=== PATIENT | male | born 1945 | race Caucasian/White ===

== ENCOUNTER → 2017-04-13 | Outpatient (CLI) | payer BC, OTHER ==
[~2017-04-13] MED LIST: CHOL1CAP67 PO; CLOBETASOL; FLUOCINOLONE; IBUP1CAP9; KETO2SHA; NYSTCRE11; SILD50TA PO
--- NOTE | 2017-04-13 13:36 | DIAGNOSTIC IMAGING REPORT ---
CHEST 2 VIEWS ROUTINE HISTORY: Weight loss. COMPARISON: Chest 06/01/2012. FINDINGS: The lungs are clear. Cardiac silhouette is normal in size. No pleural effusions. No pneumothorax. Faint nodular density within the base of the left lung base is consistent with a nipple shadow. IMPRESSION: No acute process. Electronically signed by: Frank Naylor M.D. 04/13/2017 1:35 PM Dictated Date/Time: 04/13/2017 1:29 PM
== END ==
LOC: C.RAD1850 12:58
PROVIDERS: ATTEND Family Medicine
DX: R05 Cough (principal); R53.83 Other fatigue; R63.0 Anorexia; R43.2 Parageusia; R63.4 Abnormal weight loss; R43.9 Unspecified disturbances of smell and taste

== ENCOUNTER → 2017-10-27 | Outpatient (CLI) | payer BC, OTHER ==
[~2017-10-27] MED LIST changes: -IBUP1CAP9; +IBUP200C80
--- NOTE | 2017-10-27 11:17 | DIAGNOSTIC IMAGING REPORT ---
R KNEE 2 VIEWS ROUTINE CLINICAL HISTORY: RIGHT MEDIAL KNEE PAIN COMPARISON: None. DISCUSSION: No acute fractures are visualized. There are osteoarthritic changes most pronounced within the medial joint compartment and patellofemoral joint. There is an equivocal osteochondral defect involving the patella. No destructive lesions are visualized. IMPRESSION: 1. No acute fractures 2. Moderate osteoarthritic changes most pronounced within the medial joint compartment and patellofemoral joint. Electronically signed by: Yasir Rivera M.D. 10/27/2017 11:16 AM Dictated Date/Time: 10/27/2017 11:15 AM
--- NOTE | 2017-10-27 11:21 | DIAGNOSTIC IMAGING REPORT ---
R SHOULDER MIN 2 VIEWS ROUTINE CLINICAL HISTORY: Right shoulder pain COMPARISON: None. DISCUSSION: No acute fractures or dislocations are visualized. Degenerative changes are present within the AC joint. There is a calcification located inferior to the scapular glenoid. This may relate to an old labral injury. IMPRESSION: 1. No acute fractures 2. No destructive lesions 3. Degenerative changes within the AC joint 4. Small calcific density located the undersurface of the scapular glenoid. This could relate to an old labral injury. Electronically signed by: Yasir Rivera M.D. 10/27/2017 11:20 AM Dictated Date/Time: 10/27/2017 11:19 AM
== END | disposition home or self-care (01) ==
LOC: C.RAD1850 11:00
PROVIDERS: ATTEND Family Medicine
DX: M25.561 Pain in right knee (principal); M25.511 Pain in right shoulder

== ENCOUNTER 2024-12-22 05:20 | Inpatient (IN) ==
--- NOTE | 2024-11-23 11:46 | PAT Medication Instructions ---
Medication Instructions Date of Service November 23, 2024 Home Medications aspirin 81 mg tablet 81 mg PO QAM cholecalciferol (vitamin D3) 50 mcg (2,000 unit) capsule 50 mcg PO DAILY rosuvastatin 5 mg tablet 5 mg PO HS thiamine HCl (vitamin B1) 100 mg tablet 100 mg PO QAM acetaminophen 650 mg tablet,extended release (Tylenol Arthritis Pain) 650 mg PO Q12H PRN Pain cetirizine 10 mg tablet 10 mg PO DAILY PRN Congestion ibuprofen 200 mg tablet 200 mg PO Q6H PRN Pain multivitamin 1 tab PO DAILY benzonatate 200 mg capsule 200 mg PO HS PRN Cough cyanocobalamin (vitamin B-12) 500 mcg tablet (Vitamin B-12) 500 mcg PO Q2D ASK your surgeon for instructions ibuprofen 200 mg tablet 200 mg PO Q6H PRN Pain ASK your prescriber and surgeon aspirin 81 mg tablet 81 mg PO QAM DO NOT take the morning of surgery cholecalciferol (vitamin D3) 50 mcg (2,000 unit) capsule 50 mcg PO DAILY thiamine HCl (vitamin B1) 100 mg tablet 100 mg PO QAM cetirizine 10 mg tablet 10 mg PO DAILY PRN Congestion multivitamin 1 tab PO DAILY cyanocobalamin (vitamin B-12) 500 mcg tablet (Vitamin B-12) 500 mcg PO Q2D Take morning of surgery With a small sip of water, OTHERWISE NOTHING TO EAT OR DRINK AFTER MIDNIGHT: acetaminophen 650 mg tablet,extended release (Tylenol Arthritis Pain) 650 mg PO Q12H PRN Pain (if needed) Take evening before surgery rosuvastatin 5 mg tablet 5 mg PO HS acetaminophen 650 mg tablet,extended release (Tylenol Arthritis Pain) 650 mg PO Q12H PRN Pain (if needed) cetirizine 10 mg tablet 10 mg PO DAILY PRN Congestion (if needed) benzonatate 200 mg capsule 200 mg PO HS PRN Cough (if needed) Other Notes If you have any questions please call us at [phone] or [phone] or [phone] or [phone]
--- NOTE | 2024-11-25 09:53 | Anesthesiology Consultation ---
Date of Service November 25, 2024 Assessment & Plan (1) Encounter for pre-operative examination: - awaiting surgeon ordered medical clearance, 11/[address] [facility] [address] Swenson. Chart Review Chart Review: Pending: Refer to Additional Notes / Consult section and Patient seen in Pre Admission Testing Teaching & Discussion Pre-Anesthesia Teaching/Discussion Notes: Instructed NPO after midnight before surgery, except medications with 15 cc of water. Medication instructions provided according to the PAT guidelines. History Surgery Operation Date: 12/22/24 10:40 Proposed Procedures p Left Total Hip Arthroplasty - Akil Townsend MD Height/Weight Height: 5 ft 10 in Weight: 88.2 kg Allergies Allergy/AdvReac Type Severity Reaction Status Date / Time naproxen Allergy Unknown Hives Verified 11/23/24 10:50 amoxicillin Allergy Hives Verified 11/23/24 10:50 digoxin [From Lanoxin] Allergy Hives Verified 11/23/24 10:50 sulfamethoxazole Allergy Hives Verified 11/23/24 10:50 [From Bactrim] terbinafine [From Lamisil] Allergy Hives Verified 11/23/24 10:50 trimethoprim [From Bactrim] Allergy Hives Verified 11/23/24 10:50 Medications Home Medications Medication Instructions Recorded Confirmed Last Taken aspirin 81 mg tablet 81 mg PO QAM 09/20/24 11/23/24 Unknown cholecalciferol (vitamin D3) 50 50 mcg PO DAILY 09/20/24 11/23/24 Unknown mcg (2,000 unit) capsule rosuvastatin 5 mg tablet 5 mg PO HS 09/20/24 11/23/24 Unknown thiamine HCl (vitamin B1) 100 mg 100 mg PO QAM 09/20/24 11/23/24 Unknown tablet acetaminophen 650 mg 650 mg PO Q12H PRN Pain 09/21/24 11/23/24 Unknown tablet,extended release (Tylenol Arthritis Pain) cetirizine 10 mg tablet 10 mg PO DAILY PRN Congestion 09/21/24 11/23/24 Unknown ibuprofen 200 mg tablet 200 mg PO Q6H PRN Pain 09/21/24 11/23/24 Unknown multivitamin 1 tab PO DAILY 09/21/24 11/23/24 Unknown benzonatate 200 mg capsule 200 mg PO HS PRN Cough 10/14/24 11/23/24 Unknown cyanocobalamin (vitamin B-12) 500 500 mcg PO Q2D 11/23/24 11/23/24 Unknown mcg tablet (Vitamin B-12) Past Medical History Medical History (Updated 11/25/24 @ 10:13 by Essie Hopson PA-C) Arthritis History of anemia chronic History of COVID-19 (~2021) denies hospitalization-symptoms resolved Hyperlipidemia Sleep apnea no device Patient denies h/o stroke, seizures, heart attack, heart failure, DM, HTN, blood clots/DVTs or blood transfusions. Exercise / Class Metabolic Activity II 4-5 Yardwork/Stairs/Walk up hill (denies chest discomfort or shortness of breath with one flight of stairs) Past Family History Family History Other Cancer Diabetes Heart disease Past Surgical History Surgical History H/O colonoscopy (2023) History of cataract surgery bilat History of removal of cyst (10/21/24) Excision Sebaceous Cyst Scalp 2cm in Size - Timothy Parikh MD, FACS History of tooth extraction Hx of elbow surgery right Past Anesthesia History No Hx of Anesthesia Complications and No Family Hx of Anesthesia Complications History of PONV No Hx of PONV and No Hx of Motion Sickness Social History Smoking Status: Former smoker Do You Dip or Chew Tobacco: No Smoking End Date: only a little, years ago Hx Alcohol Use: Yes Alcohol type: wine alcohol intake frequency: other Alcohol Intake Frequency Comment: 1-2 glasses/week Hx Substance Use: No substance use type: does not use Review of Systems Patient denies chest pain, shortness of breath, dyspnea on exertion, reflux, fever, chills, cough, wheezing, or palpitations. Physical Exam Vital Signs Vitals BP 110/68 P 65 TEMP 98.2 SP02 96% on RA RESP 18 Physical Patient resting comfortably in chair in no acute distress, alert and oriented, responding appropriately throughout visit Full cervical extension range of motion without pain TMD 3.5 finger breadths Mallampati Score 2 Dentition: one cap and permanent upper bridge, denies chipped or loose teeth, crowns, or implants Lungs: normal respiratory effort. Good air movement, clear throughout to auscultation, no adventitious breath sounds Cardiac: regular rate and rhythm, no murmurs noted Carotid arteries: negative bruit bilat Lab Results Anesthesia Preop Results Results Anesthesia Widget: WBC 5.77 K/ul (4.8-10.8) 11/07/24 Hgb 13.3 g/dl (14.0-18.0) L 11/07/24 Hct 37.8 % (42.0-52.0) L 11/07/24 Plt 206 K/uL (130-400) 11/07/24 Na 139 mmol/L (136-145) 11/07/24 K 4.4 mmol/L (3.5-5.1) 11/07/24 Cl 103 mmol/L (98-107) 11/07/24 CO2 32 mmol/L (21-32) 11/07/24 BUN 23 mg/dl (6-23) 11/07/24 Creat 1.07 mg/dl (0.6-1.4) 11/07/24 Glucose Level 93 mg/dl (70-99(Fasting)) 11/07/24 PT 10.7 Seconds (9.0-12.0) 11/25/24 PTT 26 Seconds (21-31) 11/25/24 INR 1.0 (0.9-1.1) 11/25/24 Urine Color Dark Yellow 11/25/24 Urine Appearance Clear (Clear) 11/25/24 Urine pH 5.5 (4.5-7.5) 11/25/24 Urine Specific [place] 1.026 (1.000-1.030) 11/25/24 Urine Protein Negative (Negative) 11/25/24 Urine Glucose (UA) Negative (Negative) 11/25/24 Urine Ketones Trace (Negative) H 11/25/24 Urine Blood Negative (Negative) 11/25/24 Urine Nitrite Negative (Negative) 11/25/24 Urine Bilirubin Negative (Negative) 11/25/24 Urine Urobilinogen Negative (Negative) 11/25/24 Urine Leukocyte Esterase Negative (Negative) 11/25/24 Blood Type A Negative 11/25/24 Antibody Screen NEGATIVE 11/25/24 Testing Electrocardiogram Date: 09/27/24 NSR, rate 70 bpm Incomplete RBBB Chest X-Ray Date: 03/09/24 No acute chest disease.
--- NOTE | 2024-12-02 12:08 | History & Physical Report ---
Date of Service December 02, 2024 Assessment & Plan (1) Osteoarthritis of left hip: Plan: PRE-OP Diagnosis: Left hip osteoarthritis Planned Procedure: Left total hip arthroplasty Plan: Patient is scheduled to undergo this procedure at the [facility] with Dr. Townsend on , December 22, 2024. Risks and complications of the procedure such as: Infection, bleeding, pain, scarring, nerve blood vessel damage, weakness, wound problems, stiffness, incomplete relief of symptoms, hardware failure, hardware loosening, wear, fracture, tendon or ligament injury, dislocation, leg length inequality, blood clots, embolism, heart attack, stroke and were explained to the patient at his visit today. Informed consent to perform the procedure was obtained. Patient was seen by PAT on November 25 and while there he obtained a CBC with differential, complete metabolic panel, PT/INR, blood type and screen, urinalysis, urine culture and sensitivity, EKG, and a nasal culture for MRSA. Patient will also need preoperative medical clearance from their primary care provider. 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 Mullen. Patient states that he plans on doing in-home physical therapy for the first 1 to 2 weeks postoperatively with [facility]. Patient states that he will most likely elect to do outpatient physical therapy at [facility] in [place]. Patient will need a walker, raised toilet seat, shower chair and a hip kit. During today's visit we reviewed the total hip packet as well as precautions. We discussed discharge planning from the hospital. I provided paperwork to obtain a handicap placard for their vehicle. We discussed lectures offered by [facility] in regards to joint replacement surgery via Zoom. I advised the patient that upon discharge from hospital we will prescribe a narcotic pain medication and anti- inflammatory. Patient will also be on an 81 mg aspirin twice daily for blood clot prevention. Patient will be scheduled for 2-week postoperative follow-up visit with myself on January 04. This chart was completed utilizing [employer] voice recognition software. Grammatical errors, random word insertions, pronoun errors, and in complete sentences are an occasional consequence of the system. Any questions or concerns about the content, text, or information contained within the body of this dictation should be addressed directly to the physician for clarification. History of Present Illness Chief Complaint: Chief Complaint: Left hip pain Primary Care Provider: Rigoberto Swenson DO History of Present Illness (including history relevant to procedure): This 79-year-old male presents to the clinic today for his preoperative history and physical. Patient complains of a 1-1/2 to 2-year history of significant left hip pain. He states that he has had multiple corticosteroid injections with only minimal relief of his pain. He states that he regularly uses ibuprofen and Tylenol. He localizes most of the pain over the posterior lateral aspect of his hip and feels that is affecting his mobility. He feels that the movement in his left lower extremity is very limited compared to that of the right. Due to failed conservative management patient is electing to proceed with surgical intervention. Review Of Systems: 12 point review of systems is performed and is unremarkable except for those things stated in the HPI and past medical history. 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 History of adenomatous polyp of colon Medicare annual wellness visit, subsequent Family history of aortic aneurysm Weight disorder Dry eye syndrome of left lacrimal gland ANEMIA TINEA NEDA MIXED HYPERLIPIDEMIA VITAMIN D DEFICIENCY TINNITUS Need for prophylactic vaccination and inoculation against influenza OBESITY, UNSPECIFIED Prostatism Tear of medial meniscus of knee ED (erectile dysfunction) Hand dermatitis Retinal tear Seborrheic keratosis Seborrheic dermatitis Low back pain Family history of abdominal aortic aneurysm Disorder of pigmentation, unspecified Benign neoplasm of other specified sites Pain in unspecified knee Follicular cyst of the skin and subcutaneous tissue, unspecified Unspecified cataract PERSONAL HISTORY OF COLONIC POLYPS Procedure History Procedure Procedure Date Comments Colonoscopy 07/16/2023 - Repeat colonoscopy in 5 years for history of polyps. - Sigmoid colon polyp, polypectomy:Hyperplastic polyp with associated lymphoid aggregate. - - One 3 mm polyp in the sigmoid colon, removed with a cold biopsy forceps. Resected and retrieved. - Diverticulosis in the left colon. - Internal hemorrhoids. - The examination was otherwise normal on direct and retroflexion views. Pelvic soft tissue X-ray 08/29/2019 - Moderate rather significant degenerative change of hips bilaterally. Findings are moderately progressive from the prior study. Colonoscopy and excision of mucosa of colon 05/06/2018 - tubular adenoma Shoulder X-ray right 10/27/2017 - 1. no acute fractures2. no destructive lesions3. degenerative changes within the AC joint4. Small calcific density located the undersurface of the scapular glenoid. This could relate to an old labral injury X-ray of right knee 10/27/2017 - 1. no acute fractures2. moderate osteoarthritic changes most pronounced within the medial joint compartment and patellofemoral joint Chest x-ray 04/13/2017 - No acute process Colonoscopy 10/22/2012 - Non-bleeding internal hemorrhoids. Repeat in 5 years. colonoscopy and adenomectomies (2) 04/21/2007 - tubular adenomas right elbow ORIF 1959 - S/P bone chips Allergies and Sensitivities: Amoxil(rash) Lanoxin sulfa drugs(Hives) sulfa drugs(Rash) sulfa drugs(Itching) Naprosyn(Hives) Bactrim(hives) Bactrim(rash) Bactrim(itching) Lamisil(hives) Current Home Meds: (Last Updated 11/30 08:47) acetaminophen (Tylenol 8 HR Arthritis Pain 650 mg oral tablet, extended release) aspirin (aspirin 81 mg oral delayed release tablet) 81 mg PO q48h benzonatate (Tessalon 200 mg oral capsule) 200 mg PO tid cetirizine (cetirizine 10 mg oral tablet) 10 mg PO Daily PRN: as needed for allergy symptoms cholecalciferol (Vitamin D3 2000 intl units oral capsule) 2,000 Int_Unit PO Daily ibuprofen (ibuprofen 200 mg oral tablet) 600 mg PO q8h multivitamin One-A-Day rosuvastatin (rosuvastatin 5 mg oral tablet) 5 mg PO qhs sodium hyaluronate (Euflexxa 10 mg/mL intra-articular solution) 20 mg intra- articular q7days R KNEE DJD M17.11 thiamine (thiamine 100 mg oral tablet) 100 mg PO Daily Allergies Allergy/AdvReac Type Severity Reaction Status Date / Time naproxen Allergy Unknown Hives Verified 11/23/24 10:50 amoxicillin Allergy Hives Verified 11/23/24 10:50 digoxin [From Lanoxin] Allergy Hives Verified 11/23/24 10:50 sulfamethoxazole Allergy Hives Verified 11/23/24 10:50 [From Bactrim] terbinafine [From Lamisil] Allergy Hives Verified 11/23/24 10:50 trimethoprim [From Bactrim] Allergy Hives Verified 11/23/24 10:50 Home Medications Medication Instructions Recorded Confirmed Type aspirin 81 mg tablet 81 mg PO QAM 09/20/24 11/23/24 History cholecalciferol (vitamin D3) 50 50 mcg PO DAILY 09/20/24 11/23/24 History mcg (2,000 unit) capsule rosuvastatin 5 mg tablet 5 mg PO HS 09/20/24 11/23/24 History thiamine HCl (vitamin B1) 100 mg 100 mg PO QAM 09/20/24 11/23/24 History tablet acetaminophen 650 mg 650 mg PO Q12H PRN Pain 09/21/24 11/23/24 History tablet,extended release (Tylenol Arthritis Pain) cetirizine 10 mg tablet 10 mg PO DAILY PRN Congestion 09/21/24 11/23/24 History ibuprofen 200 mg tablet 200 mg PO Q6H PRN Pain 09/21/24 11/23/24 History multivitamin 1 tab PO DAILY 09/21/24 11/23/24 History benzonatate 200 mg capsule 200 mg PO HS PRN Cough 10/14/24 11/23/24 History cyanocobalamin (vitamin B-12) 500 500 mcg PO Q2D 11/23/24 11/23/24 History mcg tablet (Vitamin B-12) Past Med/Surg History Problem List (Updated 12/02/24 @ 12:08 by Haroon Ferreira PA-C) Osteoarthritis of left hip Sebaceous cyst Arthritis Hyperlipemia Sleep apnea Fatigue (Chronic) Anemia (Chronic) Medical History History of anemia chronic History of COVID-19 (~2021) denies hospitalization-symptoms resolved Hyperlipidemia Sleep apnea no device Arthritis Surgical History History of removal of cyst (10/21/24) Excision Sebaceous Cyst Scalp 2cm in Size - Timothy Parikh MD, FACS Hx of elbow surgery right History of tooth extraction History of cataract surgery bilat H/O colonoscopy (2024) Family History Other Cancer Diabetes Heart disease Social History Smoking Status: Former smoker Second Hand Exposure: No; Do You Dip or Chew Tobacco: No; Hx Alcohol Use: Yes Alcohol type: wine Alcohol Intake Frequency: 2-4 x/Month Hx Substance Use: No Preferred Language: [place] Communication Ability: Effective Certified Prosthetist Required: No Beliefs That Will Affect Care: None marital status: Current Living Situation: Spouse current occupational status: retired How many Children do You have: 2 Feels Safe at Home: Yes Diet: regular during the past year weight has: remained stable Assistive Devices: Glasses Review of Systems All systems reviewed & are unremarkable except as noted in Subjective Physical Exam Physical Exam: Initial Wt: 11/29 90.0 kg 198 lb Physical Exam: (relevant to the procedure, including heart and lung evaluation) General: Alert and oriented x 3 with proper grooming and hygiene Eyes: Pupils are equal and reactive to light with accommodation. Extraocular movements are intact. Throat: Posterior oropharynx is clear with absence of edema, erythema or exudate. Dentition is appropriate Cardiac: Regular rate and rhythm with no murmurs or gallops appreciated Lungs: Clear to auscultation throughout with no wheezing, rales or rhonchi Abdomen: Mildly obese, nondistended, nontender with normal active bowel sounds Extremities: Right hip; flexion is limited to 100 degrees, internal rotation to 5 degrees and external rotation to 30 degrees. He does have tenderness to palpation in the groin area as well as over the posterior lateral aspect of the hip. Obligatory abduction and external rotation with flexion. Diminished rotatory movements and some lateral and posterior hip pain with internal rotation Diminished movement of bilateral hips, with left > right. 5/5 Motor strength, - passive straight leg raising + tenderness over the greater trochanter of the left hip, Gait normal Neuro: Cranial nerves II through XII intact no motor or sensory deficit Skin: Normal appearance no open skin areas or discharge
[2024-12-22] MEDS: dexAMETHasone**PF** 10 MG/ML VIAL IV SCH (05:57)
[2024-12-22] MEDS: ACETAMINOPHEN 500 MG TAB PO SCH ×2 (05:57→14:09)
[2024-12-22] MEDS: LR 500ML BOLUS, THEN 15ML/HR IV SCH ×2 (05:57→09:44)
[2024-12-22] MEDS: FAMOTIDINE 20 MG TAB PO SCH (05:57)
[2024-12-22] MEDS: LR 60ML/HR IV SCH (05:58)
[2024-12-22] MEDS ORDERED: BUPIVACAINE 0.5 % 5 MG/1 ML PF 10ML VIAL ONE (06:34)
[2024-12-22] MEDS ORDERED: MIDAZOLAM HCL 1 MG/ML 2ML VIAL ONE (06:39)
[2024-12-22] MEDS ORDERED: LIDOCAINE 2% 2 ML VIAL/AMP(20MG/ML) INFIL ONE (06:40)
[2024-12-22] MEDS ORDERED: PROPOFOL IV EMULSION 10 MG/ML 20 ML VIAL IV ONE (06:40)
--- NOTE | 2024-12-22 06:41 | History & Physical Bridge Note ---
Date of Service December 22, 2024 History & Physical Bridge Note I have examined the patient, reviewed the History & Physical and in the interval since the performance of the History & Physical I have noted the following changes of clinical significance: no changes noted
[2024-12-22] MEDS: TRANEXAMIC ACID 1,000 MG **IV Pre-op IV SCH (06:57)
[2024-12-22] MEDS ORDERED: ONDANSETRON INJ 2 MG/ML 2 ML VIAL IV PRN ×2 (07:03→08:43)
[2024-12-22] MEDS ORDERED: ATROPINE SULFATE 0.1 MG/ML 10ML SYR IV PRN (07:03)
[2024-12-22] MEDS ORDERED: KETAMINE HCL 10MG/ML SYR ONE (07:30)
[2024-12-22] MEDS ORDERED: ePHEDrine sulfate 50 MG/5 ML SYR ONE (07:36)
[2024-12-22] MEDS: ROPIVACAINE 0.5% HCL/PF 246 MG, Ketorolac (*for OR use only*) 30 MG, EPINEPHrine 30MG/3... INFIL SCH (08:00)
--- NOTE | 2024-12-22 08:33 | Operative Report ---
Post Operative Report Pre & Post Diagnosis Operation Date: 12/22/24 07:00 Pre-Op Diagnosis: Left Hip Osteoarthritis Post-Op Diagnosis: Left Hip Osteoarthritis I identified the patient and participated in the time-out.: Yes Procedure Operation Date: 12/22/24 07:00 Actual Procedures p Left Total Hip Arthroplasty(Left) - Akil Townsend MD Surgeon Akil Townsend MD Reel Stripper XIAO Ferreira PA-C. No resident or fellow was available to assist. Estimated Blood Loss 100 Findings Consistent with Post-Op Diagnosis Specimens Left femoral head Anesthesia Type Spinal MAC Complications none Disposition Disposition: Recovery Room Indications 79-year-old male, left hip arthritis refractory to conservative management. X- rays demonstrate severe joint space narrowing and marginal osteophyte formation. I reviewed the risks and benefits of surgery, alternatives to surgery, and expected outcomes. He elected to proceed with surgery. All questions were answered. Informed consent was signed. Description of Procedure Patient was identified in the preoperative holding area where the surgical site, left hip, was marked. A spinal anesthetic was placed, then the patient was brought back to the main operating room, placed in the operating table and moved into the lateral decubitus position. Axillary roll was placed. All bony prominences were padded. Perioperative antibiotics and tranexamic acid 1 gram IV were administered. The operative extremity was prepped and draped in the normal sterile fashion. Prior to incision a multidisciplinary timeout was called. All in the room were in agreement. We began by making an incision for a posterior approach to the hip. We dissected down through subcutaneous tissues to the level of the fascia. The fascia was incised in line with the incision. Charnley bow was placed. Fatty tissue was reflected posteriorly off the back of the greater trochanter to expose the piriformis and short external rotators of the hip. Quadratus femor is was taken off the femur subperiosteally. The piriformis and short external rotators were dissected off the posterior aspect of the hip. A box cut was made in the capsule. Inferior hip capsule was released off the femur. The femoral head was dislocated. The femoral neck cut was made at our preoperative template. The acetabulum was then exposed. The labrum was sharply excised. Contents of the cotyloid fossa were removed with electrocautery. We then began reaming at a size 8 mm less than our preoperative template. We reamed up by 1 [address] the way up to a size 58 mm cup. This gave us good bleeding cancellus bone circumferentially. The acetabulum was then irrigated out and dried. The real [place] Gription cup was then impacted down into position with 40 degrees of lateral opening and 25 degrees of anteversion. A single cancellous bone screw was placed up into the ilium. Excellent fixation was obtained. A trial liner for a 36 mm femoral head was then placed. Next we turned our attention to the femur. The lateral neck was removed with a box osteotome. Intramedullary guide was used to establish the intramedullary canal. We then broached all the way up to a size 6. We began trialing with a high offset neck and a +1.5 head. Hip was reduced. Leg lengths were symmetric. The hip was stable in extension and external rotation, and stable in the sleeper position. At 90 degrees of hip flexion the hip could be internally rotated 70 degrees before levering out of the cup. I was very happy with the stability exam. Therefore the hip was dislocated and the femoral trial was removed. The acetabulum was re-exposed, and the trial liner was removed. Deadwood hole eliminator screw was placed. An Altrx polyethylene liner for a 36 mm femoral head was then impacted into the shell. The locking mechanism was checked to ensure that it had engaged which it had. The femur was re-exposed. The femoral canal was irrigated and dried. The real Actis femoral stem was opened up. This was impacted down into position. The femoral head was opened up and gently impacted down onto the trunnion. The hip was atraumatically reduced. Another 1 gram of IV tranexamic acid was started prior to closure. The wound was irrigated out with sterile Betadine solution. The periarticular injection cocktail was then placed. The short external rotators, piriformis, and posterior capsule were repaired through drill holes in the greater trochanter using #2 Vicryl. The fascia was run with a looped #1 PDS. The subcutaneous layer was closed with #1 PDS. The dermal layer was closed with 2-0 Vicryl. Zip line was used for the skin followed by a Silverlon dressing. A compressive dressing was then placed. The patient was then rolled supine. Leg lengths were rechecked and were symmetric. An abduction pillow was placed. Sedation was lifted and the patient was transferred to the recovery room in stable condition. Summary of implants: Depuy [place] Gription Acetabular Shell Sector Cup, 58 mm outer diameter [place] Cancellous bone screw, 6.5 x 40 mm Deadwood hole eliminator [place] Altrx Polyethylene Acetabular Liner, Neutral, with a 36 mm inner diameter DePuy Actis collared cementless Femoral stem, 12/14 taper, size 6 high offset 36 mm ceramic femoral head with +1.5 offset Postoperative course: Patient will be admitted overnight from the recovery room. Patient will be weightbearing as tolerated with posterior hip precautions. Aspirin for DVT prophylaxis I attest to the content of the Intraoperative Record and any orders documented therein. Any exceptions are noted below.
--- NOTE | 2024-12-22 08:41 | Operative Report ---
Post Operative Report Pre & Post Diagnosis Operation Date: 12/22/24 07:00 Pre-Op Diagnosis: Left Hip Osteoarthritis Post-Op Diagnosis: Left Hip Osteoarthritis I identified the patient and participated in the time-out.: Yes Procedure Operation Date: 12/22/24 07:00 Actual Procedures p Left Total Hip Arthroplasty(Left) - Akil Townsend MD Surgeon Akil Townsend MD [employer] XIAO Ferreira PA-C. No resident or fellow was available to assist. Estimated Blood Loss 100 Findings Consistent with Post-Op Diagnosis Specimens femoral head Description of Procedure I was present during the entire case assisting with positioning, prepping, draping, wound retraction, wound closure, dressing and abduction pillow placement. No fellow present. Please see Dr. Townsend operative note for specifics of the case. I attest to the content of the Intraoperative Record and any orders documented therein. Any exceptions are noted below.
[2024-12-22] MEDS ORDERED: TAMSULOSIN HCL 0.4 MG CAP PO PRN (08:43)
[2024-12-22] MEDS ORDERED: METOCLOPRAMIDE HCL INJ 5 MG/ML 2 ML VIAL IV PRN (08:43)
[2024-12-22] MEDS ORDERED: NALOXONE HCL 0.4 MG/1 ML VIAL/CARP IV PRN (08:43)
[2024-12-22] MEDS ORDERED: ALUMINUM/MAGNESIUM SUSP 30 ML UDC PO PRN (08:43)
[2024-12-22] MEDS ORDERED: MAGNESIUM HYDROXIDE SUSP 30 ML UDC PO PRN (08:43)
[2024-12-22] MEDS ORDERED: diphenhydrAMINE 50 MG/ML VIAL IV PRN (08:43)
--- NOTE | 2024-12-22 09:27 | XRay Report ---
XR pelvis 1-2V routine CLINICAL HISTORY: In PACU - Post Surgical BAY 8 COMPARISON: 11/29/2024 FINDINGS: Left hip prosthesis shows no hardware complication. There is expected soft tissue gas. IMPRESSION: Unremarkable postoperative exam. ACT 112: Negative or not required by law. Electronically signed by: Thomas Irwin M.D. 12/22/2024 9:26 AM
[2024-12-22] MEDS ORDERED: BENZONATATE 100 MG CAPSULE PO PRN (09:43)
[2024-12-22] MEDS ORDERED: CETIRIZINE HCL 10 MG TABLET PO PRN (09:43)
[2024-12-22] MEDS: ORTHO JOINT ANESTHETIC ONE (09:45)
[2024-12-22] MEDS: SODIUM CHLORIDE 0.9% 1,000 ML IV SCH (09:59)
[2024-12-22 10:19] VITALS: RESP 16
[2024-12-22] MEDS: DOCUSATE SODIUM 100 MG CAP PO SCH (10:21)
[2024-12-22] MEDS: THIAMINE HCL 100 MG TAB PO SCH (10:21)
[2024-12-22] MEDS: CHOLECALCIFEROL 25 MCG (1000 UNITS) TAB PO SCH (10:21)
[2024-12-22] MEDS: MULTIVITAMIN TAB PO SCH (10:22)
[2024-12-22] MEDS: CYANOCOBALAMIN (B-12) 500 MCG TABLET PO SCH (10:22)
[2024-12-22] MEDS: KETOROLAC TROMETHAMINE 15 MG/ML VIAL IV SCH (10:54)
--- NOTE | 2024-12-22 11:11 | Anesthesiology Progress Note ---
Date of Service December 22, 2024 Anesthesia Post Procedure Vital Signs Vital Signs: Temp Pulse Pulse Resp BP BP Pulse Ox 12/22/24 10:45 36.5 C 73 16 125/73 97 12/22/24 10:18 36.5 C 74 16 120/69 98 12/22/24 09:40 36.5 C 76 15 132/77 98 12/22/24 09:20 36.4 C L 68 18 111/70 98 12/22/24 09:10 71 18 118/79 95 12/22/24 09:00 67 14 115/68 97 12/22/24 08:50 69 16 108/68 99 12/22/24 08:44 36.5 C 76 17 132/77 98 12/22/24 08:39 36.2 C L 76 16 125/65 97 12/22/24 05:49 37.0 C 68 18 127/68 95 O2 Del Method O2 Flow Rate 12/22/24 10:45 Room Air 12/22/24 10:18 Room Air 12/22/24 09:40 Room Air 12/22/24 09:20 Room Air 12/22/24 09:10 Room Air 12/22/24 09:00 Room Air 12/22/24 08:50 Oxymask 3 12/22/24 08:44 Room Air 12/22/24 08:39 Oxymask 6 12/22/24 05:49 Room Air Transfer of Care Handoff Completed per policy Notes Mental Status: alert / awake / arousable Patient Amnestic to Procedure: Yes Nausea / Vomiting: adequately controlled Pain: adequately controlled Airway Patency, RR, SpO2: stable & adequate BP & HR: stable & adequate Hydration State: stable & adequate Neuraxial Anesthesia: was administered and sensory block is resolving Anesthetic Complications: no major complications apparent and Pt Satisfied with anesthetic care
[2024-12-22] MEDS: Scopolamine CHECK PATCH PLACEMENT SCH (17:47)
[2024-12-22] MEDS: SENNA 8.6 MG TAB PO SCH (21:11)
[2024-12-22] MEDS: ROSUVASTATIN CALCIUM 5 MG TAB PO SCH (21:12)
[2024-12-23 06:50] LABS: Hematocrit (blood only) 31.6 % (42.0-52.0); Hemoglobin 10.6 g/dl (14.0-18.0); Immature Granulocytes # (auto) 0.04 K/uL (0.01-0.20); Immature Granulocytes % (auto) 0.4 %; Mean Corpuscular Hemoglobin 31.0 pg (25.0-34.0); Mean Corpuscular Volume 92.4 fL (80.0-100.0); Platelet Count 166 K/uL (130-400); RDW Standard Deviation 44.3 fL (36.4-46.3); Red Blood Count 3.42 M/uL (4.70-6.10); White Blood Count 9.24 K/ul (4.8-10.8)
[2024-12-23 07:06] VITALS: BP 111/72; PULSE 68; TEMP 97.7; O2SAT 98
[2024-12-23 07:07] LABS: Anion Gap 6.0 (3-11); Blood Urea Nitrogen 24.0 mg/dl (6-23); Calcium 8.6 mg/dl (8.6-10.3); Carbon Dioxide 26.0 mmol/L (21-32); Chloride 105.0 mmol/L (98-107); Creatinine Clr Calc Pharmacy 59.2 ml/min; Glucose 106.0 mg/dl (70-99(Fasting)); Potassium 4.0 mmol/L (3.5-5.1); Sodium 137.0 mmol/L (136-145)
[2024-12-23] MEDS: dexAMETHasone 10 MG in SYRINGE 0 ML IV SCH (08:12)
[2024-12-23] MEDS: ASPIRIN 81 MG ECTAB PO SCH (08:12)
--- NOTE | 2024-12-23 09:48 | Orthopedic Progress Note ---
Date of Service December 23, 2024 Assessment & Plan (1) S/P total left hip arthroplasty: Plan: PT/OT Weightbearing as tolerated with walker assistance Ice with EZ wrap Keep Silverlon dressing in place until follow-up Abduction pillow use x 6 weeks DVT prophylaxis with aspirin and PATRICE stockings Pain control with p.o. medication Plan is to discharge home today with in-home physical therapy for the first 2 weeks With questions contact our clinic at [phone] Follow-up at [facility] orthopedics as previously scheduled. Admission and Anticipated Discharge Date Admission Date: December 22, 2024 Subjective This 79-year-old male is day 1 status post left total hip arthroplasty. Patient states he is doing very well. He states he really has no pain. He states that he has been able to ambulate from his bed to the bathroom several times. States that he working on lifting his leg up and bending at his knee. Patient states that he was able to participate with PT and OT without issue. Currently he denies chest pain, shortness of breath, fever, chills, sweats, nausea, vomiting, diarrhea, difficulty voiding or numbness or tingling in his left lower extremity. Review of Systems Review of Systems: All systems reviewed & are unremarkable except as noted in Subjective Physical Exam Physical Exam: Left hip: Outer dressing was removed. Silverlon is clean dry and intact and left in place. Patient was able to perform active straight leg raise test. He is able to actively dorsi and plantarflex foot. He tolerated passive hip flexion near 90 degrees and experienced no discomfort with light passive internal or external hip rotation. He was able to easily transition from a seated to a standing position. His quad strength is 4+ out of 5. He is neurov ascularly intact in the left lower extremity. Results & Data Vital Signs (Past 12 Hours) Vital Signs Temp Pulse Resp BP Pulse Ox O2 Del Method 12/23/24 07:00 36.5 C 68 16 111/72 98 Room Air 12/23/24 02:57 36.7 C 53 L 16 108/67 95 Room Air 12/22/24 23:00 36.6 C 57 L 16 114/69 97 Room Air Diagnostic Findings Laboratory Results WBC 9.24 K/ul (4.8-10.8) 12/23/24 06:12 RBC 3.42 M/uL (4.70-6.10) L 12/23/24 06:12 Hgb 10.6 g/dl (14.0-18.0) L 12/23/24 06:12 Hct 31.6 % (42.0-52.0) L 12/23/24 06:12 MCV 92.4 fL (80.0-100.0) 12/23/24 06:12 MCH 31.0 pg (25.0-34.0) 12/23/24 06:12 MCHC 33.5 g/dL (32.0-36.0) 12/23/24 06:12 RDW Std Deviation 44.3 fL (36.4-46.3) 12/23/24 06:12 RDW Coeff of Manish 13.2 % (11.5-14.5) 12/23/24 06:12 Plt Count 166 K/uL (130-400) 12/23/24 06:12 MPV 10.2 fL (9.4-12.4) 12/23/24 06:12 Immature Gran % (Auto) 0.4 % 12/23/24 06:12 Neut % (Auto) 70.3 % 12/23/24 06:12 Lymph % (Auto) 21.0 % 12/23/24 06:12 [place] % (Auto) 7.9 % 12/23/24 06:12 Eos % (Auto) 0.1 % 12/23/24 06:12 Baso % (Auto) 0.3 % 12/23/24 06:12 Neut # (Auto) 6.49 K/uL (1.40-6.50) 12/23/24 06:12 Lymph # (Auto) 1.94 K/uL (1.20-3.40) 12/23/24 06:12 [place] # (Auto) 0.73 K/uL (0.11-0.59) H 12/23/24 06:12 Eos # (Auto) 0.01 K/uL (0.00-0.50) 12/23/24 06:12 Baso # (Auto) 0.03 K/uL (0.00-0.20) 12/23/24 06:12 Immature Gran # (Auto) 0.04 K/uL (0.01-0.20) 12/23/24 06:12 Sodium 137 mmol/L (136-145) 12/23/24 06:12 Potassium 4.0 mmol/L (3.5-5.1) 12/23/24 06:12 Chloride 105 mmol/L (98-107) 12/23/24 06:12 Carbon Dioxide 26 mmol/L (21-32) 12/23/24 06:12 Anion Gap 6 (3-11) 12/23/24 06:12 BUN 24 mg/dl (6-23) H 12/23/24 06:12 Creatinine 1.15 mg/dl (0.6-1.4) 12/23/24 06:12 Est Cr Clr Drug Dosing 59.2 ml/min 12/23/24 06:12 eGFR 65.14 12/23/24 06:12 BUN/Creatinine Ratio 20.9 (10-20) H 12/23/24 06:12 Glucose 106 mg/dl (70-99(Fasting)) H 12/23/24 06:12 Calcium 8.6 mg/dl (8.6-10.3) 12/23/24 06:12 Impressions Pelvis X-Ray 12/22/24 08:44 XR pelvis 1-2V routine CLINICAL HISTORY: In PACU - Post Surgical BAY 8 COMPARISON: 11/29/2024 FINDINGS: Left hip prosthesis shows no hardware complication. There is expected soft tissue gas. IMPRESSION: Unremarkable postoperative exam. ACT 112: Negative or not required by law. Electronically signed by: Thomas Irwin M.D. 12/22/2024 9:26 AM
--- NOTE | 2024-12-23 09:57 | Discharge Summary ---
Date of Service December 23, 2024 Admission HPI Per Admitting Provider History of Present Illness (including history relevant to procedure): This 79-year-old male presents to the clinic today for his preoperative history and physical. Patient complains of a 1-1/2 to 2-year history of significant left hip pain. He states that he has had multiple corticosteroid injections with only minimal relief of his pain. He states that he regularly uses ibuprofen and Tylenol. He localizes most of the pain over the posterior lateral aspect of his hip and feels that is affecting his mobility. He feels that the movement in his left lower extremity is very limited compared to that of the right. Due to failed conservative management patient is electing to proceed with surgical intervention. Review Of Systems: 12 point review of systems is performed and is unremarkable except for those things stated in the HPI and past medical history. 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 History of adenomatous polyp of colon Medicare annual wellness visit, subsequent Family history of aortic aneurysm Weight disorder Dry eye syndrome of left lacrimal gland ANEMIA TINEA NEDA MIXED HYPERLIPIDEMIA VITAMIN D DEFICIENCY TINNITUS Need for prophylactic vaccination and inoculation against influenza OBESITY, UNSPECIFIED Prostatism Tear of medial meniscus of knee ED (erectile dysfunction) Hand dermatitis Retinal tear Seborrheic keratosis Seborrheic dermatitis Low back pain Family history of abdominal aortic aneurysm Disorder of pigmentation, unspecified Benign neoplasm of other specified sites Pain in unspecified knee Follicular cyst of the skin and subcutaneous tissue, unspecified Unspecified cataract PERSONAL HISTORY OF COLONIC POLYPS Procedure History Procedure Procedure Date Comments Colonoscopy 07/16/2023 - Repeat colonoscopy in 5 years for history of polyps. - Sigmoid colon polyp, polypectomy:Hyperplastic polyp with associated lymphoid aggregate. - - One 3 mm polyp in the sigmoid colon, removed with a cold biopsy forceps. Resected and retrieved. - Diverticulosis in the left colon. - Internal hemorrhoids. - The examination was otherwise normal on direct and retroflexion views. Pelvic soft tissue X-ray 08/29/2019 - Moderate rather significant degenerative change of hips bilaterally. Findings are moderately progressive from the prior study. Colonoscopy and excision of mucosa of colon 05/06/2018 - tubular adenoma Shoulder X-ray right 10/27/2017 - 1. no acute fractures2. no destructive lesions3. degenerative changes within the AC joint4. Small calcific density located the undersurface of the scapular glenoid. This could relate to an old labral injury X-ray of right knee 10/27/2017 - 1. no acute fractures2. moderate osteoarthritic changes most pronounced within the medial joint compartment and patellofemoral joint Chest x-ray 04/13/2017 - No acute process Colonoscopy 10/22/2012 - Non-bleeding internal hemorrhoids. Repeat in 5 years. colonoscopy and adenomectomies (2) 04/21/2007 - tubular adenomas right elbow ORIF 1959 - S/P bone chips Allergies and Sensitivities: Amoxil(rash) Lanoxin sulfa drugs(Hives) sulfa drugs(Rash) sulfa drugs(Itching) Naprosyn(Hives) Bactrim(hives) Bactrim(rash) Bactrim(itching) Lamisil(hives) Current Home Meds: (Last Updated 11/30 08:47) acetaminophen (Tylenol 8 HR Arthritis Pain 650 mg oral tablet, extended release) aspirin (aspirin 81 mg oral delayed release tablet) 81 mg PO q48h benzonatate (Tessalon 200 mg oral capsule) 200 mg PO tid cetirizine (cetirizine 10 mg oral tablet) 10 mg PO Daily PRN: as needed for allergy symptoms cholecalciferol (Vitamin D3 2000 intl units oral capsule) 2,000 Int_Unit PO Daily ibuprofen (ibuprofen 200 mg oral tablet) 600 mg PO q8h multivitamin One-A-Day rosuvastatin (rosuvastatin 5 mg oral tablet) 5 mg PO qhs sodium hyaluronate (Euflexxa 10 mg/mL intra-articular solution) 20 mg intra- articular q7days R KNEE DJD M17.11 thiamine (thiamine 100 mg oral tablet) 100 mg PO Daily Admission Exam Per Admitting Provider Initial Wt: 11/29 90.0 kg 198 lb Physical Exam: (relevant to the procedure, including heart and lung evaluation) General: Alert and oriented x 3 with proper grooming and hygiene Eyes: Pupils are equal and reactive to light with accommodation. Extraocular movements are intact. Throat: Posterior oropharynx is clear with absence of edema, erythema or exudate. Dentition is appropriate Cardiac: Regular rate and rhythm with no murmurs or gallops appreciated Lungs: Clear to auscultation throughout with no wheezing, rales or rhonchi Abdomen: Mildly obese, nondistended, nontender with normal active bowel sounds Extremities: Right hip; flexion is limited to 100 degrees, internal rotation to 5 degrees and external rotation to 30 degrees. He does have tenderness to palpation in the groin area as well as over the posterior lateral aspect of the hip. Obligatory abduction and external rotation with flexion. Diminished rotatory movements and some lateral and posterior hip pain with internal rotation Diminished movement of bilateral hips, with left > right. 5/5 Motor strength, - passive straight leg raising + tenderness over the greater trochanter of the left hip, Gait normalNeuro: Cranial nerves II through XII intact no motor or sensory deficit Skin: Normal appearance no open skin areas or discharge Principal Diagnosis left hip osteoarthritis Discharge Exam Left hip: Outer dressing was removed. Silverlon is clean dry and intact and left in place. Patient was able to perform active straight leg raise test. He is able to actively dorsi and plantarflex foot. He tolerated passive hip flexion near 90 degrees and experienced no discomfort with light passive internal or external hip rotation. He was able to easily transition from a seated to a standing position. His quad strength is 4+ out of 5. He is neurovascularly intact in the left lower extremity. Discharge Data Allergies Allergy/AdvReac Type Severity Reaction Status Date / Time amoxicillin Allergy Mild Hives Verified 12/22/24 05:31 digoxin [From Lanoxin] Allergy Mild Hives Verified 12/22/24 05:31 naproxen Allergy Mild Hives Verified 12/22/24 05:31 sulfamethoxazole Allergy Mild Hives Verified 12/22/24 05:31 [From Bactrim] terbinafine [From Lamisil] Allergy Mild Hives Verified 12/22/24 05:31 trimethoprim [From Bactrim] Allergy Mild Hives Verified 12/22/24 05:31 Procedures Performed Operation Date: 12/22/24 07:00 Actual Procedures p Left Total Hip Arthroplasty(Left) - Akil Townsend MD Hospital Course (1) S/P total left hip arthroplasty: Patient had an uneventful overnight stay following left total hip arthroplasty. He is very pleased with the results of the surgery. He states that his pain is much improved. He states that he did well with PT and OT this morning and is h oping to be discharged home later this morning with in-home physical therapy scheduled for the first 2 weeks postop. PT/OT Weightbearing as tolerated with walker assistance Ice with EZ wrap Keep Silverlon dressing in place until follow-up Abduction pillow use x 6 weeks DVT prophylaxis with aspirin and PATRICE stockings Pain control with p.o. medication Plan is to discharge home today with in-home physical therapy for the first 2 weeks With questions contact our clinic at [phone] Follow-up at [facility] orthopedics as previously scheduled. Total Time Total Time Spent Total Time Spent (In Minutes): 25 mins Discharge Plan Discharge Items Patient Disposition: Home - Home Health Services Reason For Visit: Left Hip Osteoarthritis Discharge Diagnosis: s/p Left total hip arthroplasty Activity: As commented below Lifting: None Bathing: Keep incision dry Bathing Comment: May shower tomorrow Sexual Activity: Wait until after follow-up appointment Exercise/Sports: Wait until after follow-up appointment Driving/Machine Use: No driving until cleared by customer service specialist Weightbearing: Left weightbearing Weightbearing Comment: as tolerated w/ walker Non-emergency contact: Surgeon Call non-emergency contact if: you have any medication questions, your pain is not controlled, your temperature is above 101.5, your wound has increased drainage and your wound pain has increased Follow-up/Referrals: Rigoberto Swenson, [Primary Care Provider] - Diet: Regular Addtl Attending Provider Instructions: Post-operative Instructions Dear Patient and Family/Friends, Before you are discharged from the hospital, it is important to know what to expect when you get home after surgery. To that end, we have created this sheet of discharge instructions which covers many commonly asked questions. Make sure you go through this sheet in its entirety with your nurse before you are discharged. Please note that we will go over the specifics of your surgery and recovery when you return for your first post-operative visit. Sincerely, Dr. Townsend Medications 1. Oxycodone 5 mg: Take 1 to 2 tablets every 4-6 hours as needed for postoperative pain control. A prescription for this medication will be sent to your pharmacy. 2. Diclofenac sodium 75 mg: Take 1 tablet twice daily for the first 30 days postoperatively for pain and inflammation relief. This medication will also be sent to your pharmacy with a refill. 3. Aspirin 81 mg: Take 1 tablet twice daily for the first 30 days postoperatively for blood clot prevention. Please purchase the medication. 4. Extra strength Tylenol 500 mg: Take 2 tablets every 6-8 hours as needed for additional pain control. Please also purchase the medication. Pain Expect to be in a fair amount of pain after surgery. Remember, our goal is not to eliminate your pain, but to make it tolerable. It is a good idea to stay ahead of your pain by taking the medications you were prescribed once you get home. Typically, the pain starts improving 3-7 days after surgery. You should start weaning off the narcotic pain medication (oxycodone, hydrocodone, hydromorphone, morphine) as soon as your pain improves. Please call our office if your pain is not adequately controlled. Ice Ice your operative site at least 5 times a day for 15-30 minutes at a time. Make sure you have a thin cloth between the ice or cooling unit and your skin to prevent morin bite. This is especially important if you received a nerve block. Continue icing your operative site for the first 5-7 days after surgery, then as needed. Diet/Nausea/Vomiting Start by drinking clear liquids and eating crackers. If you can tolerate this, then you may resume your normal diet. If you feel nauseated or vomit, take Zofran/ondansetron (if prescribed). Please call our office if you have intractable nausea or vomiting, or, if after hours, you may go to the Emergency Room for help. Constipation Constipation is a common side effect of narcotic pain medication. If you have not had a bowel movement within 2 days after surgery, we recommend purchasing an over the counter laxative such as Milk of Magnesia, Dulcolax, or Miralax from a local pharmacy, and taking it as instructed. Call our clinic if any questions. Nerve block The anesthesia team sometimes places a nerve block to help with post-operative pain control. This results in significant numbness and inability to move the extremity. The nerve block usually wears off in 8-12 hours, but sometimes can last up to 24 hours. Please call our office if you are still unable to move your extremity after 24 hours, unless you received a pain pump to take home. Nerve blocks typically wear off quickly, so start taking pain medication as soon as you start feeling soreness near your surgical site. Weight bearing and Range of Motion. Do not bear any weight through your operative extremity immediately after surg alexis. If you had upper extremity surgery, do not lift anything with that arm. If you are in a knee brace, keep it locked in place until your follow-up. We will discuss your weight bearing, range of motion, and lifting restrictions in detail at your first post-operative appointment. Continuous Passive Motion (CPM) Machine If you were prescribed a CPM machine, it will start after your first post-op erative appointment, at which time we will give you instructions on the range of motion settings and duration of treatment Physical therapy You will be given a prescription for physical therapy or occupational therapy at your first post-operative appointment. Typically, patients start therapy within 1 week of surgery Wound care and showering We will inspect your wound at your first post-operative visit, and may do a dressing change at that time. Most patients will be in a water-proof dressing that is removed 14 days after surgery. It is normal to see some dried blood on the dressing. Do not remove your dressing, paper strips or sutures yourself unless you are given permission. Showering is allowed the day after surgery. Do not scrub or remove any dressings. The wound should not be submerged underwater (i.e. in a bathtub or pool) until 4 weeks after surgery PATRICE stockings If you were given white stockings, these are to be worn at all times except to shower (on both legs) for the first 2 weeks after surgery. Driving You may not drive while taking narcotic pain medication or while in a cast, splint, sling or brace. You, the patient, need to make the final determination about when you are safe to drive, however, the earliest you may consider driving after surgery is below: Hand/Wrist/Elbow Surgery: 3 days Shoulder Surgery: 2 weeks Hip,/Knee/Ankle Surgery: 4 weeks Fracture repair: 6 weeks Return to Work Your return to work depends on what surgery was done and what type of work you do. Please bring any paperwork your employer needs completed to your first post-operative visit. Also, bring a description of your job duties, as this helps us to understand what risks you may face at work. Travel Avoid long distance travel (greater than 1 hour) in airplanes and cars for the first 6 weeks after surgery. If you must travel, you need to have a Doppler ultrasound done before you travel to rule out a blood clot in your legs. Follow-up You should have a follow-up appointment already scheduled 1-2 days after surgery. If not, please contact our office to make this appointment before you leave the hospital. When to call the office It is normal to have swelling and bruising in the limb that was operated on. This will improve with time. It is also normal to have fevers for the first 2 days after surgery. Reasons you should call your doctor include: Uncontrolled pain; Nausea, vomiting, or constipation that does not improve with medication; Fevers over 101.5, chills, sweats; Drainage or bleeding from the wound; Foul odor; Spreading areas of redness; Any other concerns. Contact Information Please call Dr. Townsend's office at [phone] with any concerns. Pending Studies at Discharge: No Stand-Alone Forms: [facility] Medications and DC Order Prescriptions: New aspirin 81 mg Tablet,Delayed Release (Dr/Ec) 81 mg PO BID 30 Days Qty: 60 0RF acetaminophen [Tylenol Extra Strength] 500 mg Tablet 1,000 mg PO Q8 30 Days Qty: 180 0RF oxycodone 5 mg Tablet 5 - 10 mg PO Q4H MDD Max 6/day PRN (Reason: Post op pain control) Qty: 28 0RF diclofenac sodium 75 mg tablet,delayed release (DR/EC) 75 mg PO BID 30 Days Qty: 60 1RF Continued cholecalciferol (vitamin D3) 50 mcg (2,000 unit) capsule 50 mcg PO DAILY rosuvastatin 5 mg tablet 5 mg PO HS thiamine HCl (vitamin B1) 100 mg tablet 100 mg PO QAM cetirizine 10 mg tablet 10 mg PO DAILY PRN (Reason: Congestion) multivitamin Tablet 1 tab PO DAILY cyanocobalamin (vitamin B-12) [Vitamin B-12] 500 mcg Tablet 500 mcg PO Q2D benzonatate 200 mg Capsule 200 mg PO HS PRN (Reason: Cough) Changed aspirin 81 mg tablet 81 mg PO BID Qty: 0 0RF Discontinued acetaminophen [Tylenol Arthritis Pain] 650 mg tablet extended release 650 mg PO Q12H PRN (Reason: Pain) ibuprofen 200 mg tablet 200 mg PO Q6H PRN (Reason: Pain) Discharge Orders: Discharge Order (Routine); Ordered 12/23/24 Ordered By: Haroon Ferreira Admission Data Admit Date/Time: 12/22/24 08:44 Attending Provider: Akil Townsend Admit Provider: Akil Townsend Primary Care Provider: Rigoberto Swenson Other Providers: [facility],[place], [facility]; [facility]
[2024-12-25] MEDS ORDERED: Scopolamine REMOVE TRANSDERM PATCH ONE (08:00)
== END 2024-12-23 11:39 | disposition home health service (06) | DRG 470 ==
LOC: ASU 05:20 → 3E 08:44